=== PATIENT | male | born 1960 | race Caucasian/White ===

== ENCOUNTER 2016-12-09 08:37 | Inpatient (IN) | payer MEDICAID ==
[~2016-12-09] VITALS: Ht 177.8 cm; Wt 83.9 kg
[2016-12-09] VITALS (13 sets, daily range): BP systolic 104–150; BP diastolic 32–102
--- NOTE | 2016-12-09 08:37 | NUR ---
Patient ambulated to ER bed 1B with steady gait. Patient is seen chewing. Patient says he is currently eating a chocolate milky bar while at the same time complaining of shortness of breath and palpitations for a week. Patient denies nausea or vomiting, skin is warm and dry.
[2016-12-09] MEDS ORDERED: DILTIAZEM HCL 25 MG IV IV ONE (08:45)
--- NOTE | 2016-12-09 08:51 | NUR ---
PT REPORTS HE IS NOT TAKING ANY MEDICATIONS .
[2016-12-09] MEDS ORDERED: DILTIAZEM HCL 25 MG IV ONE (08:54)
[2016-12-09] MEDS ORDERED: METOPROLOL TARTRATE 5 MG/5 ML VIAL IVP ONE ×4 (09:14→10:26)
--- NOTE | 2016-12-09 09:17 | NUR ---
Patient is resting comfortably in bed with eyes closed. Patient denies pains, pending results and disposition.
[2016-12-09 09:27] LABS: CALCIUM 8.5 mg/dL (8.5-10.1); CREATININE 1.2 mg/dL (0.6-1.3); POTASSIUM 4.2 mmol/L (3.5-5.1)
[2016-12-09 09:34] LABS: BASOPHILS # (AUTO) 0.1 K/uL (0.0-0.2); BASOPHILS % (AUTO) 0.7 % (0.0-2.0); EOSINOPHILS # (AUTO) 0.3 K/uL (0.0-0.7); EOSINOPHILS % (AUTO) 3.9 % (0.0-7.0); HEMOGLOBIN 12.6 g/dL (14.0-18.0); LYMPHOCYTES # (AUTO) 1.4 K/uL (0.8-4.8); LYMPHOCYTES % (AUTO) 17.8 % (20.5-51.5); MEAN CORPUSCULAR HEMOGLOBIN 28.5 uug (27.0-31.0); MEAN CORPUSCULAR HGB CONC 33 g/dL (32.0-37.0); MEAN CORPUSCULAR VOLUME 86.1 fL (82.0-92.0); MONOCYTES # (AUTO) 0.5 K/uL (0.1-1.30); MONOCYTES % (AUTO) 6.4 % (0.0-11.0); NEUTROPHILS # (AUTO) 5.7 K/uL (1.8-8.9); NEUTROPHILS % (AUTO) 71.2 % (38.5-71.5); PLATELET COUNT (AUTO) 199 K/uL (150-450); RED BLOOD CELL COUNT(AUTO) 4.42 MIL/uL (4.70-6.10); RED CELL DISTRIBUTION WIDTH 15.1 % (11.5-14.5)
[2016-12-09 09:39] LABS: ALBUMIN 3.2 g/dL (3.4-5.0); BILIRUBIN,DIRECT 0.1 mg/dL (0.0-0.2); BILIRUBIN,TOTAL 0.4 mg/dL (0.2-1.0); TOTAL PROTEIN, SERUM 6.4 g/dL (6.4-8.2)
--- NOTE | 2016-12-09 10:47 | NUR ---
still for urine sample, endorse to RN [place], current heart rate is still 130's/min, Dr Lundy notified, no new orders given
--- NOTE | 2016-12-09 10:55 | NUR ---
On arrival to telemetry floor, charge manager Mckenzie communicated to Dr Britton. Patient's care is now CCU. ER registration /admission staff [place] notified.
--- NOTE | 2016-12-09 11:18 | NUR ---
Bedside report received from RENETTA Arreguin. patient placed on cardiac tech and heart rate of afib-110's 130's sbp within desire limits. saturation of 95% on room air. over all skin clean and intact. patient with no complains of been shortness of breath at this time. Patient resting afebrile.
--- NOTE | 2016-12-09 11:18 | NUR ---
Patient is now in CCU-2. Bedside hands off report given to RENETTA Zamora accordingly.
--- NOTE | 2016-12-09 11:20 | NUR ---
Dr. Greenfield called to be notified of patient's current condition and of admission to the unit. Awaiting orders.
[2016-12-09 13:37] LABS: *AMPHETAMINE, URINE NEGATIVE (NEGATIVE); *BARBITURATE, URINE NEGATIVE (NEGATIVE); *CANNABINOID, URINE POSITIVE (NEGATIVE); *COCCAINE, URINE POSITIVE (NEGATIVE); *OPIATE, URINE NEGATIVE (NEGATIVE); *PHENCYCLIDINE SCREEN,URINE NEGATIVE (NEGATIVE)
[2016-12-09] MEDS ORDERED: ACETAMINOPHEN 650 MG SUPP.RECT RC PRN (14:30)
[2016-12-09] MEDS ORDERED: NORMAL SALINE FLUSH 10 ML DISP.SYRIN IV PRN (14:30)
[2016-12-09] MEDS ORDERED: MAGNESIUM HYDROXIDE 30 ML LIQUID UDC PO PRN (14:30)
[2016-12-09] MEDS ORDERED: AMIODARONE HCL IV 900 MG in IV DEXTROSE 5% 482 ML IV PRN (14:30)
[2016-12-09] MEDS ORDERED: ZOLPIDEM 5 MG TABLET PO PRN (14:30)
[2016-12-09] MEDS ORDERED: AMIODARONE HCL IV 150 MG in IV DEXTROSE 5% 100 ML IV ONE (14:30)
--- NOTE | 2016-12-09 14:45 | NUR ---
Dr. Greenfield in the unit to see patient; full report given orders received see, order history.
[2016-12-09] MEDS: LORAZEPAM 2 MG/1 ML VIAL IV PRN (16:43)
--- NOTE | 2016-12-09 19:30 | NUR ---
Report received. Patient sleeping at intervals, mildly SOB and with grunting respirations occasionally. O2 @ 2L NC; sat above 94%. HOB elevated to optimum; patient refused high fowlers despite explanation that it will ease his breathing. Assessment completed. Stands at side of bed to urinate; gait steady. Addendum: 12/09/16 at 2131 by ERASMO AGUIAR RN Amended: Links added.
--- NOTE | 2016-12-09 20:30 | NUR ---
2nd IV access inserted to RFA with angio #22. Patient cooperative. Treatment plans discussed with patient. Addendum: 12/09/16 at 2110 by ERASMO AGUIAR RN Amended: Links added.
--- NOTE | 2016-12-09 20:40 | NUR ---
Medicated with Morphine IV for generalized pain. Addendum: 12/09/16 at 2114 by ERASMO AGUIAR RN Amended: Links added.
[2016-12-09] MEDS: MORPHINE SULFATE 2 MG/1 ML DISP.SYRIN IV PRN (20:41)
[2016-12-09] MEDS: DOCUSATE SODIUM 100 MG CAPSULE PO SCH (20:44)
[2016-12-09] MEDS ORDERED: ENOXAPARIN SODIUM 100 MG/ML DISP.SYRIN SQ SCH (21:00)
[2016-12-09] MEDS ORDERED: FUROSEMIDE 20 MG/2 ML VIAL IV SCH (21:00)
--- NOTE | 2016-12-09 22:00 | NUR ---
Seen and evaluated by Dr. Henley. Patient voiding per urinal 100-160 ml of clear yellow urine. Addendum: 12/09/16 at 2341 by ERASMO AGUIAR RN Amended: Links added.
[2016-12-09] MEDS: NORMAL SALINE FLUSH 10 ML DISP.SYRIN IV SCH (22:04)
--- NOTE | 2016-12-09 22:15 | NUR ---
Amiodarone toney martinez as ordered by Dr. Henley. Sleeping at intervals. Addendum: 12/09/16 at 2253 by ERASMO AGUIAR RN Amended: Links added.
[2016-12-09] MEDS: DILTIAZEM HCL 60 MG TABLET PO SCH (23:44)
[2016-12-09] MEDS ORDERED: DILTIAZEM HCL 60 MG TABLET ONE (23:52)
[2016-12-10] VITALS (8 sets, daily range): BP systolic 118–151; BP diastolic 65–100
[2016-12-10] MEDS: MORPHINE SULFATE 2 MG/1 ML DISP.SYRIN IV PRN (01:59)
--- NOTE | 2016-12-10 02:00 | NUR ---
Awake; c/o generalized pain. Medicated with Morphine IV. BP stable. Addendum: 12/10/16 at 0229 by ERASMO AGUIAR RN Amended: Links added.
--- NOTE | 2016-12-10 04:00 | NUR ---
In and out of Atrial flutter with variable blocks rate 110's and SVT rate 120's. Addendum: 12/10/16 at 0424 by ERASMO AGUIAR RN Amended: Links added.
[2016-12-10] MEDS: NORMAL SALINE FLUSH 10 ML DISP.SYRIN IV SCH ×3 (06:11→21:26)
[2016-12-10] MEDS: PANTOPRAZOLE SODIUM 40 MG TABLET.DR PO SCH (06:13)
[2016-12-10] MEDS: DILTIAZEM HCL 60 MG TABLET PO SCH ×2 (06:13→13:15)
[2016-12-10] MEDS ORDERED: DILTIAZEM HCL 60 MG TABLET ONE (06:21)
--- NOTE | 2016-12-10 06:30 | NUR ---
Monitor remains: A flutter rate 110'-120'. Had 2 doses of Cardizem 60 mg po. ( 0000 and 0600). BP stable.
[2016-12-10 06:57] LABS: BASOPHILS # (AUTO) 0.2 K/uL (0.0-0.2); BASOPHILS % (AUTO) 1.8 % (0.0-2.0); EOSINOPHILS # (AUTO) 0.3 K/uL (0.0-0.7); EOSINOPHILS % (AUTO) 3.5 % (0.0-7.0); HEMATOCRIT 38.6 % (40.0-50.0); HEMOGLOBIN 12.7 g/dL (14.0-18.0); LYMPHOCYTES # (AUTO) 2.1 K/uL (0.8-4.8); LYMPHOCYTES % (AUTO) 21.6 % (20.5-51.5); MEAN CORPUSCULAR HEMOGLOBIN 28.3 uug (27.0-31.0); MEAN CORPUSCULAR HGB CONC 33 g/dL (32.0-37.0); MEAN CORPUSCULAR VOLUME 85.7 fL (82.0-92.0); MONOCYTES # (AUTO) 0.6 K/uL (0.1-1.30); MONOCYTES % (AUTO) 6.5 % (0.0-11.0); NEUTROPHILS # (AUTO) 6.4 K/uL (1.8-8.9); NEUTROPHILS % (AUTO) 66.6 % (38.5-71.5); PLATELET COUNT (AUTO) 202 K/uL (150-450); RED CELL DISTRIBUTION WIDTH 15.1 % (11.5-14.5); WHITE BLOOD COUNT (AUTO) 9.6 K/uL (4.0-11.2)
[2016-12-10 07:25] LABS: ALBUMIN 3.1 g/dL (3.4-5.0); BILIRUBIN,TOTAL 0.8 mg/dL (0.2-1.0); CALCIUM 8.5 mg/dL (8.5-10.1); CREATININE 1.1 mg/dL (0.6-1.3); MAGNESIUM 2.1 mg/dL (1.8-2.4); PHOSPHOROUS 3.5 mg/dL (2.5-4.9); TOTAL PROTEIN, SERUM 6.3 g/dL (6.4-8.2)
--- NOTE | 2016-12-10 07:30 | NUR ---
RECIEVED PT LYING IN BED, AWAKE,ALERT AND ORIENTEDX3. DENIES ANY PAIN AT THIS TIME. VERY PLEASANT AND IN GOOD SPIRIT.
[2016-12-10] MEDS: FUROSEMIDE 20 MG/2 ML VIAL IV SCH (08:43)
[2016-12-10 10:54] LABS: THYROID STIMULATING HORMONE 2.249 mIU/mL (0.358-3.740)
[2016-12-10] MEDS: LORAZEPAM 2 MG/1 ML VIAL IV PRN (14:34)
--- NOTE | 2016-12-10 16:30 | NUR ---
PT IS A LITTLE ANXIOUS. REQUESTED FOR AN ATIVAN 1MG ORDERED AND PT WENT TO SLEEP.
[2016-12-10] MEDS ORDERED: RIVAROXABAN 10 MG TABLET PO SCH (18:00)
--- NOTE | 2016-12-10 18:00 | NUR ---
SEEN AND EXAMINED BY DR BURROUGHS WITH NEW ORDERS. PT REMAINS STABLE ALL DAY.
[2016-12-10] MEDS ORDERED: DIGOXIN 250 MCG TABLET PO ONE (18:15)
[2016-12-10] MEDS: DILTIAZEM HCL CD 180 MG CAP.SR.24H PO SCH (18:19)
--- NOTE | 2016-12-10 19:00 | NUR ---
PT ATE [employer]. TRANSFERRED TO [facility] RM 215 VIA W/C. REPORT GIVEN TO XOCHITL JACK[place].
--- NOTE | 2016-12-10 19:15 | NUR ---
received patient from ccu to room 215,tele-Td status,patient alert,oriented x4, not in acute distress,bp 118/83,o2 sat 96% on room air.A-Flutter rate 100's,patient denies any pain/discomfort.
[2016-12-10] MEDS: DOCUSATE SODIUM 100 MG CAPSULE PO SCH (21:26)
[2016-12-11] MEDS ORDERED: DIGOXIN 250 MCG TABLET PO ONE
[2016-12-11 00:14] VITALS: BP 122/75
--- NOTE | 2016-12-11 01:30 | NUR ---
PATIENT HAS BEEN SLEEPING AFTER AMBIEN 5 MG PO GIVEN PER REQUESTED.
[2016-12-11 04:07] VITALS: BP 113/56
[2016-12-11] MEDS: MORPHINE SULFATE 2 MG/1 ML DISP.SYRIN IV PRN (04:42)
--- NOTE | 2016-12-11 04:54 | NUR ---
MORPHINE 2 MG IV ADMIN FOR GENERALIZED PAIN,PATIENT REMAINS IN A FIB, A FLUTTER, RATE 80-100'S,BP STABLE.
[2016-12-11] MEDS: NORMAL SALINE FLUSH 10 ML DISP.SYRIN IV SCH ×2 (06:03→14:00)
[2016-12-11] MEDS: PANTOPRAZOLE SODIUM 40 MG TABLET.DR PO SCH (06:52)
--- NOTE | 2016-12-11 07:54 | NUR ---
PATIENT RECEIVED IN ROOM RESTING WITH EYES CLOSED IN NO ACUTE DISTRESS. CONTROLLED A. FLUTTER ON CONSTRUCTION COORDINATOR. RESPIRATIONS EVEN AND UNLABORED. FALL PRECAUTIONS IN PLACE.
[2016-12-11 08:00] VITALS: BP 142/84
[2016-12-11] MEDS: FUROSEMIDE 20 MG/2 ML VIAL IV SCH (08:35)
[2016-12-11] MEDS: DILTIAZEM HCL CD 180 MG CAP.SR.24H PO SCH (08:36)
[2016-12-11] MEDS ORDERED: DIGOXIN 250 MCG TABLET PO SCH (09:00)
[2016-12-11 11:48] VITALS: BP 125/73
[2016-12-11] MEDS: LORAZEPAM 2 MG/1 ML VIAL IV PRN (13:44)
[2016-12-11 15:46] VITALS: BP 119/67
[2016-12-11] MEDS ORDERED: RIVA10TA PO (16:51)
[2016-12-11] MEDS ORDERED: FURO-151 PO (16:51)
[2016-12-11] MEDS ORDERED: ATOR20TA PO (16:51)
[2016-12-11] MEDS ORDERED: ACET650S24 RC (16:51)
[2016-12-11] MEDS ORDERED: DILT180C66 PO (16:51)
[2016-12-11] MEDS ORDERED: DIGO250T16 PO (16:51)
--- NOTE | 2016-12-11 17:26 | NUR ---
DISCHARGING PATIENT HOME IN A STABLE CONDITION. VSS. DENIED CHEST PAIN. DISCHARGE INSTRUCTIONS PROVIDED. LIST OF BELONGINGS SIGNED AND ALL WAS TAKEN. IV SITES REMOVED, PRESSURE APPLIED AND HEMOSTASIS ACHIEVED. PATIENT LEAVING VIA ELVER, ELVER TOKEN PROVIDED.
[2016-12-11] MEDS ORDERED: ATORVASTATIN 20 MG TABLET PO SCH (21:00)
== END 2016-12-11 17:40 | disposition home or self-care (01) | DRG 201 ==
LOC: ER 08:37 → EDBD 08:37 → TELE 10:49 → CCU 11:25 → TELE-TD 12-10 19:35 → MED 12-11 17:04
PROVIDERS: ADMIT Internal Medicine; ATTEND Internal Medicine
DX: I48.91 Unspecified atrial fibrillation (principal); I50.23 Acute on chronic systolic (congestive) heart failure; I42.9 Cardiomyopathy, unspecified; J44.1 Chronic obstructive pulmonary disease with (acute) exacerbation; I48.4 Atypical atrial flutter; I11.0 Hypertensive heart disease with heart failure; F14.10 Cocaine abuse, uncomplicated; F17.200 Nicotine dependence, unspecified, uncomplicated; E66.9 Obesity, unspecified; D64.9 Anemia, unspecified; F17.210 Nicotine dependence, cigarettes, uncomplicated; I48.0 Paroxysmal atrial fibrillation; Z91.14 Patient's other noncompliance with medication regimen; Z68.26 Body mass index [BMI] 26.0-26.9, adult; R73.9 Hyperglycemia, unspecified; I34.0 Nonrheumatic mitral (valve) insufficiency
CPT/HCPCS: 36415; 70030-TC; 71010; 80307; 80349; 80353; 83550; 83735; 84100; 84443; 85025; 85730; 93005; 93307; A4663; J0282; J1650; J1940; J2060; J2270; J3490; J7060

== ENCOUNTER 2016-12-16 23:03 | Inpatient (IN) | payer MEDICAID ==
[~2016-12-16] VITALS: Ht 177.8 cm; Wt 88.6 kg
[~2016-12-16 23:03] MED LIST: ACET650S24 RC; ATOR20TA PO; DIGO250T16 PO; DILT180C66 PO; FURO-151 PO; RIVA10TA PO
[2016-12-16] MEDS ORDERED: DILTIAZEM HCL IV 125 MG in IV DEXTROSE 5% 100 ML IV PRN (23:45)
[2016-12-16] MEDS ORDERED: DILTIAZEM HCL 25 MG IV IV ONE (23:45)
[2016-12-16] MEDS ORDERED: ASPIRIN 81 MG TAB.CHEW PO ONE (23:45)
[2016-12-17 00:19] LABS: EOSINOPHILS # (AUTO) 0.4 K/uL (0.0-0.7); EOSINOPHILS % (AUTO) 3.9 % (0.0-7.0); HEMOGLOBIN 12.8 g/dL (14.0-18.0); MONOCYTES # (AUTO) 0.6 K/uL (0.1-1.30); RED CELL DISTRIBUTION WIDTH 14.4 % (11.5-14.5)
[2016-12-17 00:25] LABS: BASOPHILS # (AUTO) 0.1 K/uL (0.0-0.2); BASOPHILS % (AUTO) 1.4 % (0.0-2.0); HEMATOCRIT 37.3 % (40.0-50.0); LYMPHOCYTES # (AUTO) 1.8 K/uL (0.8-4.8); LYMPHOCYTES % (AUTO) 19.3 % (20.5-51.5); MEAN CORPUSCULAR HEMOGLOBIN 28.8 uug (27.0-31.0); MEAN CORPUSCULAR HGB CONC 34 g/dL (32.0-37.0); MEAN CORPUSCULAR VOLUME 83.6 fL (82.0-92.0); MONOCYTES % (AUTO) 6.8 % (0.0-11.0); NEUTROPHILS # (AUTO) 6.5 K/uL (1.8-8.9); NEUTROPHILS % (AUTO) 68.6 % (38.5-71.5); PLATELET COUNT (AUTO) 227 K/uL (150-450); RED BLOOD CELL COUNT(AUTO) 4.46 MIL/uL (4.70-6.10); WHITE BLOOD COUNT (AUTO) 9.4 K/uL (4.0-11.2)
[2016-12-17] MEDS ORDERED: DILTIAZEM HCL 25 MG IV ONE (00:33)
[2016-12-17] MEDS ORDERED: ASPIRIN 81 MG TAB.CHEW ONE (00:33)
[2016-12-17] MEDS ORDERED: DILTIAZEM HCL 50 MG IV ONE (00:34)
[2016-12-17 00:39] LABS: ALBUMIN 3.5 g/dL (3.4-5.0); BILIRUBIN,DIRECT 0.1 mg/dL (0.0-0.2); BILIRUBIN,TOTAL 0.7 mg/dL (0.2-1.0); TOTAL PROTEIN, SERUM 7.1 g/dL (6.4-8.2)
[2016-12-17] MEDS ORDERED: DIGOXIN 500 MCG/2 ML AMP IV ONE (01:00)
[2016-12-17] MEDS ORDERED: ENOXAPARIN SODIUM 80 MG/0.8 ML DISP.SYRIN SQ ONE ×2 (01:00→01:30)
[2016-12-17 01:05] LABS: *OCCULT BLOOD STOOL NEGATIVE (NEGATIVE)
[2016-12-17] MEDS ORDERED: DIGOXIN 500 MCG/2 ML AMP ONE (01:30)
[2016-12-17 01:50] LABS: *BILIRUBIN,URIN NEGATIVE (NEGATIVE); *BLOOD, URINE NEGATIVE (NEGATIVE); *CLARITY,URINE CLEAR (CLEAR); *COLOR,URINE YELLOW (YELLOW); *KETONES,URINE NEGATIVE (NEGATIVE); *PROTEIN,URINE 1+ (NEGATIVE); LEUKOCYTE ESTERASE ,URINE NEGATIVE (NEGATIVE); NITRITE, URINE NEGATIVE (NEGATIVE); PH,URINE 7.5 (5.0-8.0); UGLUCOSE NEGATIVE (NEGATIVE)
[2016-12-17 01:56] LABS: BACTERIA,URINE FEW /HPF (NONE SEEN); RBC,URINE NONE SEEN /HPF (0-3); SQUAMOUS EPITHELIAL CELL,UR FEW /HPF (NONE SEEN); WBC,URINE 0-3 /HPF (0-3)
[2016-12-17 02:00] LABS: *AMPHETAMINE, URINE NEGATIVE (NEGATIVE); *BARBITURATE, URINE NEGATIVE (NEGATIVE); *CANNABINOID, URINE POSITIVE (NEGATIVE); *COCCAINE, URINE POSITIVE (NEGATIVE); *OPIATE, URINE NEGATIVE (NEGATIVE); *PHENCYCLIDINE SCREEN,URINE NEGATIVE (NEGATIVE)
[2016-12-17] MEDS ORDERED: MAGNESIUM HYDROXIDE 30 ML LIQUID UDC PO PRN ×2 (02:00→21:00)
[2016-12-17] MEDS ORDERED: Z GUARD REMEDY PASTE 57 GM TUBE TOP PRN (02:00)
[2016-12-17] MEDS ORDERED: ACETAMINOPHEN 650 MG SUPP.RECT RC PRN (02:00)
[2016-12-17] MEDS ORDERED: HYDROCODONE/APAP 5-325MG TABLET PO PRN ×2 (02:00→12:00)
[2016-12-17] MEDS ORDERED: ONDANSETRON 4 MG/2 ML VIAL IV PRN (02:00)
[2016-12-17] MEDS ORDERED: ACETAMINOPHEN 325 MG TABLET PO PRN (02:00)
[2016-12-17 02:45] VITALS: BP 137/99
[2016-12-17] MEDS ORDERED: HYDROCODONE/APAP 5-325MG TABLET ONE (03:19)
[2016-12-17 07:23] VITALS: BP 150/87
[2016-12-17 07:25] VITALS: BP 150/87
[2016-12-17] MEDS: PANTOPRAZOLE SODIUM 40 MG TABLET.DR PO SCH (08:02)
[2016-12-17] MEDS ORDERED: FUROSEMIDE 40 MG TABLET PO SCH (09:00)
[2016-12-17] MEDS: DIGOXIN 250 MCG TABLET PO SCH (09:18)
[2016-12-17 11:20] VITALS: BP 156/82
[2016-12-17] MEDS: DILTIAZEM HCL CD 180 MG CAP.SR.24H PO SCH (13:00)
[2016-12-17 15:29] VITALS: BP 151/91
[2016-12-17] MEDS: RIVAROXABAN 10 MG TABLET PO SCH (17:12)
[2016-12-17 19:00] VITALS: BP 135/90
[2016-12-17] MEDS: LORAZEPAM 2 MG/1 ML VIAL IV PRN (20:27)
[2016-12-17] MEDS ORDERED: ATORVASTATIN 20 MG TABLET PO SCH (21:00)
[2016-12-18] VITALS: BP 130/75
[2016-12-18] MEDS: LORAZEPAM 2 MG/1 ML VIAL IV PRN ×3 (03:11→23:29)
[2016-12-18 04:00] VITALS: BP 144/111
[2016-12-18 05:45] VITALS: BP 138/79
[2016-12-18] MEDS: PANTOPRAZOLE SODIUM 40 MG TABLET.DR PO SCH (06:35)
[2016-12-18] MEDS: FUROSEMIDE 20 MG TABLET PO SCH (08:13)
[2016-12-18] MEDS: DIGOXIN 250 MCG TABLET PO SCH (08:14)
[2016-12-18] MEDS: DILTIAZEM HCL CD 180 MG CAP.SR.24H PO SCH (08:14)
[2016-12-18 11:45] VITALS: BP 136/105
[2016-12-18 15:17] LABS: ALBUMIN 3.2 g/dL (3.4-5.0); BILIRUBIN,TOTAL 0.5 mg/dL (0.2-1.0); CREATININE 1.2 mg/dL (0.6-1.3); PHOSPHOROUS 3.1 mg/dL (2.5-4.9); TOTAL PROTEIN, SERUM 6.7 g/dL (6.4-8.2)
[2016-12-18 15:50] VITALS: BP 132/90
[2016-12-18 16:52] LABS: EOSINOPHILS # (AUTO) 0.1 K/uL (0.0-0.7); LYMPHOCYTES # (AUTO) 1.2 K/uL (0.8-4.8); MONOCYTES # (AUTO) 0.4 K/uL (0.1-1.30)
[2016-12-18 16:53] LABS: HEMATOCRIT 38.7 % (39-51); HEMOGLOBIN 13.1 G/DL (13.5-17.5); MEAN CORPUSCULAR HEMOGLOBIN 29.7 UUG (26.0-33.0); MEAN CORPUSCULAR HGB CONC 34 g/dL (31.0-36.0); MEAN CORPUSCULAR VOLUME 87.3 FL (80-96); PLATELET COUNT (AUTO) 229 K/UL (150-450); RED BLOOD CELL COUNT(AUTO) 4.43 MIL/UL (4.5-6.0); RED CELL DISTRIBUTION WIDTH 12.9 % (11.5-15.0)
[2016-12-18 16:54] LABS: BASOPHILS % (AUTO) 0.1 % (0.0-2.0); EOSINOPHILS % (AUTO) 1.4 % (0.0-7.0); LYMPHOCYTES % (AUTO) 15.4 % (20.5-51.5); MONOCYTES % (AUTO) 5.1 % (0.0-11.0); WHITE BLOOD COUNT (AUTO) 7.6 K/UL (4.3-11.0)
[2016-12-18] MEDS: RIVAROXABAN 10 MG TABLET PO SCH (17:19)
[2016-12-18 19:00] VITALS: BP 140/89
[2016-12-19 04:00] VITALS: BP 135/80
[2016-12-19] MEDS: PANTOPRAZOLE SODIUM 40 MG TABLET.DR PO SCH (06:15)
[2016-12-19] MEDS: DIGOXIN 250 MCG TABLET PO SCH (08:03)
[2016-12-19] MEDS: FUROSEMIDE 20 MG TABLET PO SCH (08:04)
[2016-12-19] MEDS: DILTIAZEM HCL CD 180 MG CAP.SR.24H PO SCH (08:04)
[2016-12-19] MEDS ORDERED: Furosemide PO (11:30)
[2016-12-19 12:07] VITALS: BP 140/90
== END 2016-12-19 13:30 | disposition home or self-care (01) | DRG 194 ==
LOC: ER 23:24 → TELE-TD 12-17 02:12 → TELE 12-17 09:20 → MED 12-18 13:12
PROVIDERS: ADMIT Internal Medicine; ATTEND Internal Medicine
DX: I50.23 Acute on chronic systolic (congestive) heart failure (principal); N17.0 Acute kidney failure with tubular necrosis; I42.9 Cardiomyopathy, unspecified; I48.92 Unspecified atrial flutter; Z91.14 Patient's other noncompliance with medication regimen; F14.10 Cocaine abuse, uncomplicated; D64.9 Anemia, unspecified; F17.210 Nicotine dependence, cigarettes, uncomplicated; E66.9 Obesity, unspecified; I10 Essential (primary) hypertension; F41.9 Anxiety disorder, unspecified; I48.91 Unspecified atrial fibrillation; J44.9 Chronic obstructive pulmonary disease, unspecified; Z68.28 Body mass index [BMI] 28.0-28.9, adult; Z91.19 Patient's noncompliance with other medical treatment and regimen; Z79.899 Other long term (current) drug therapy
CPT/HCPCS: 36415; 70030-TC; 71010; 80307; 83735; 84100; 85025; 85730; 93005; A4663; J1160; J1650; J2060; J3490; J7040; J7060

== ENCOUNTER 2017-08-23 23:35 | Emergency (ER) | payer MEDICAID ==
[~2017-08-23] VITALS: Ht 175.3 cm; Wt 86.2 kg
[~2017-08-23 23:35] MED LIST changes: -DILT180C66 PO; -FURO-151 PO; +Furosemide PO
[2017-08-24] MEDS ORDERED: ASPIRIN 81 MG TAB.CHEW PO ONE
--- NOTE | 2017-08-24 00:08 | NUR ---
1 NITRO 0.4MG SL GIVEN, 1 NITRO OINTMENT PACKET GIVEN. WILL MONITOR.
--- NOTE | 2017-08-24 00:13 | NUR ---
PATIENT DENIES CHEST PAIN AT THIS TIME, FELT RELIEF AFTER MEDICATION.
[2017-08-24 00:20] LABS: BASOPHILS # (AUTO) 0.1 K/uL (0.0-8.0); BASOPHILS % (AUTO) 1.4 % (0.0-2.0); EOSINOPHILS # (AUTO) 0.4 K/uL (0.0-0.7); EOSINOPHILS % (AUTO) 5.5 % (0.0-7.0); HEMATOCRIT 42.7 % (40-50); LYMPHOCYTES % (AUTO) 25.2 % (20.5-51.5); MEAN CORPUSCULAR HEMOGLOBIN 29.4 UUG (27.0-31.0); MEAN CORPUSCULAR HGB CONC 33 g/dL (32.0-37.0); MEAN CORPUSCULAR VOLUME 89.8 FL (82.0-92.0); MONOCYTES # (AUTO) 0.4 K/UL (0.1-1.30); MONOCYTES % (AUTO) 5.6 % (0.0-11.0); NEUTROPHILS # (AUTO) 4.9 K/UL (1.8-8.9); NEUTROPHILS % (AUTO) 62.3 % (38.5-71.5); PLATELET COUNT (AUTO) 239 K/UL (150-450); RED BLOOD CELL COUNT(AUTO) 4.75 MIL/UL (4.7-6.1); WHITE BLOOD COUNT (AUTO) 7.8 K/UL (4.0-11.2)
[2017-08-24] MEDS ORDERED: ASPIRIN 81 MG TAB.CHEW ONE (00:22)
[2017-08-24] MEDS ORDERED: NITROGLYCERIN OINT 1 GM PACKET TP ONE ×2 (00:22)
[2017-08-24] MEDS ORDERED: NITROGLYCERIN 0.4 MG/TAB BOTTLE SL ONE ×2 (00:22)
[2017-08-24 00:32] LABS: CREATININE 1.4 mg/dL (0.6-1.3); POTASSIUM 3.6 mmol/L (3.5-5.1)
[2017-08-24 00:44] LABS: BILIRUBIN,DIRECT 0.2 mg/dL (0.0-0.2); BILIRUBIN,TOTAL 0.6 mg/dL (0.2-1.0); TOTAL PROTEIN, SERUM 6.9 g/dL (6.4-8.2)
[2017-08-24] MEDS ORDERED: IV NORMAL SALINE 1000 ML BAG IV ONE (01:15)
[2017-08-24] MEDS ORDERED: IV NORMAL SALINE 250 ML IV ONE (01:35)
[2017-08-24] MEDS ORDERED: IOHEXOL 350 100 ML INFUS..BTL ONE (01:35)
[2017-08-24 04:09] VITALS: BP 138/72
--- NOTE | 2017-08-24 04:09 | NUR ---
Patient discharged to home in stable conditon. Written and verbal after care instructions given. Patient verbalizes understanding of instructions. PATIENT LEFT WITH STABLE GAIT.
== END 2017-08-24 04:10 | disposition home or self-care (01) ==
LOC: ER 23:37
DX: R07.9 Chest pain, unspecified (principal); R06.00 Dyspnea, unspecified; F14.10 Cocaine abuse, uncomplicated; E78.00 Pure hypercholesterolemia, unspecified; Z91.14 Patient's other noncompliance with medication regimen; I48.91 Unspecified atrial fibrillation; F17.200 Nicotine dependence, unspecified, uncomplicated
CPT/HCPCS: 36415; 71010; 71275; 80048; 80076; 83880; 84484 ×2; 85025; 85379; 85730; 93005; 96360; 99285; 99406; A4663; J7050; Q9967; 70030-TC

== ENCOUNTER 2017-09-05 04:27 | Inpatient (IN) | payer MEDICAID ==
[~2017-09-05] VITALS: Ht 177.8 cm; Wt 86.2 kg
[2017-09-05] MEDS ORDERED: NITROGLYCERIN 0.4 MG/TAB BOTTLE SL ONE (05:00)
[2017-09-05] MEDS ORDERED: ASPIRIN 81 MG TAB.CHEW PO ONE (05:00)
[2017-09-05] MEDS ORDERED: NITROGLYCERIN OINT 1 GM PACKET TP ONE ×2 (05:00→05:19)
[2017-09-05] MEDS ORDERED: LORAZEPAM 2 MG/1 ML VIAL IV ONE (05:00)
[2017-09-05 05:09] LABS: BASOPHILS % (AUTO) 0.3 % (0.0-2.0); EOSINOPHILS # (AUTO) 0.1 K/uL (0.0-0.7); EOSINOPHILS % (AUTO) 0.6 % (0.0-7.0); HEMATOCRIT 41.6 % (36.7-47.1); HEMOGLOBIN 14.3 g/dL (12.5-16.3); LYMPHOCYTES # (AUTO) 1.2 K/uL (20.0-40.0); LYMPHOCYTES % (AUTO) 11.7 % (20.5-51.5); MEAN CORPUSCULAR HEMOGLOBIN 31.3 uug (23.8-33.4); MEAN CORPUSCULAR HGB CONC 34 g/dL (32.5-36.3); MONOCYTES # (AUTO) 0.7 K/uL (2.0-10.0); MONOCYTES % (AUTO) 6.6 % (0.0-11.0); NEUTROPHILS # (AUTO) 8.3 K/uL (1.8-8.9); NEUTROPHILS % (AUTO) 80.8 % (38.5-71.5); PLATELET COUNT (AUTO) 223 K/uL (152-348); RED BLOOD CELL COUNT(AUTO) 4.57 MIL/uL (4.06-5.63); WHITE BLOOD COUNT (AUTO) 10.3 K/uL (3.6-10.2)
--- NOTE | 2017-09-05 05:13 | NUR ---
Pt ambulated to room with steady gait, changed into gown and placed on monitor. Pt c/o intermittent midsternal chest pressure and shortness of breath. Pt describes it as " I cant catch my breath" Pt NSR on monitor. Resp even and unlabored. Pt speaking full sentences. Pt O2 sats > 95% on RA. Pt seen by Dr. Green. IV established, labs drawn and sent. Pt medicated for discomfort, will monitor for effects of medication. EKG obtained and given to Dr. Green. Pt resting in position of comfort for self
[2017-09-05] MEDS ORDERED: ASPIRIN 81 MG TAB.CHEW ONE ×2 (05:19→05:23)
[2017-09-05] MEDS ORDERED: LORAZEPAM 2 MG/1 ML VIAL ONE (05:20)
[2017-09-05 05:36] LABS: BILIRUBIN,DIRECT 0.2 mg/dL (0.0-0.2); BILIRUBIN,TOTAL 0.6 mg/dL (0.2-1.0); CREATININE 1.7 mg/dL (0.6-1.3); POTASSIUM 3.7 mmol/L (3.5-5.1); TOTAL PROTEIN, SERUM 6.5 g/dL (6.4-8.2)
--- NOTE | 2017-09-05 05:40 | NUR ---
Pt resting in position of comfort for self, resp even and unlabored. No obvious signs of distress. Pt has no complaints at this time.
--- NOTE | 2017-09-05 06:07 | NUR ---
Report given to RENETTA Carpio. Preparing to transfer pt to the floor.
--- NOTE | 2017-09-05 06:19 | NUR ---
Nitro SL not administered, pt chest pain free
[2017-09-05] MEDS ORDERED: ONDANSETRON 4 MG/2 ML VIAL IV PRN (06:45)
[2017-09-05] MEDS ORDERED: ZOLPIDEM 5 MG TABLET PO PRN (06:45)
[2017-09-05] MEDS ORDERED: MAGNESIUM HYDROXIDE 30 ML LIQUID UDC PO PRN (06:45)
[2017-09-05] MEDS ORDERED: ALBUTEROL SULFATE 1.25 MG/3 ML NEBU NEB PRN (06:45)
[2017-09-05] MEDS ORDERED: LORAZEPAM 2 MG/1 ML VIAL IV PRN (06:45)
[2017-09-05] MEDS ORDERED: ACETAMINOPHEN 325 MG TABLET PO PRN (06:45)
--- NOTE | 2017-09-05 07:00 | NUR ---
received from night club manager RN, pt came from home with c/o midsternal pain- states on and off, denies any at this time, on tele SR- denies of shortness of breath, routine admission care rendered, safety measures maintained, call light within reach
[2017-09-05 07:31] VITALS: BP 117/64
[2017-09-05] MEDS: ASPIRIN 81 MG TAB.CHEW PO SCH (09:12)
[2017-09-05] MEDS: POTASSIUM CHLORIDE 20 MEQ in IV 1/2NS 1000 ML 1,000 ML IV PRN (09:13)
[2017-09-05 11:28] VITALS: BP 116/65
[2017-09-05 11:52] LABS: *AMPHETAMINE, URINE NEGATIVE (NEGATIVE); *BARBITURATE, URINE NEGATIVE (NEGATIVE); *CANNABINOID, URINE POSITIVE (NEGATIVE); *COCCAINE, URINE POSITIVE (NEGATIVE); *OPIATE, URINE NEGATIVE (NEGATIVE); *PHENCYCLIDINE SCREEN,URINE NEGATIVE (NEGATIVE)
--- NOTE | 2017-09-05 12:00 | NUR ---
urine sent to lab
--- NOTE | 2017-09-05 12:05 | NUR ---
seen by Dr Gamboa with orders
[2017-09-05 13:29] LABS: *CREATININE,URINE 235.3 mg/dL (30-125)
[2017-09-05 15:44] VITALS: BP 121/75
--- NOTE | 2017-09-05 18:44 | NUR ---
no distress noted, tele SR 70's, denies of chest pain, appetite good, voiding qs, all needs attended and met, call light within reach
[2017-09-05 19:00] VITALS: BP 131/71
--- NOTE | 2017-09-05 19:50 | NUR ---
PT RECEIVED IN BED, AWAKE. A/OX3. ABLE TO MAKE NEEDS KNOWN. V/S STABLE. IN NO ACUTE DISTRESS. PT C/O PAIN 07/07. WILL ADMIN PAIN MEDICATION ORDERED. IVF INFUSING. SINUS RHYTHM ON THE TELE MONITOR. NO C/O OF SOB AT THIS TIME. SAFETY MEASURES IMPLEMENTED. CALL LIGHT WITHIN REACH.
[2017-09-05] MEDS: HYDROCODONE/APAP 5-325MG TABLET PO PRN (21:52)
[2017-09-06] VITALS: BP 119/72
[2017-09-06] MEDS: POTASSIUM CHLORIDE 20 MEQ in IV 1/2NS 1000 ML 1,000 ML IV PRN (00:30)
[2017-09-06 04:00] VITALS: BP 143/83
--- NOTE | 2017-09-06 06:05 | NUR ---
END OF SHIFT NOTES. PT SLEPT WELL THROUGHOUT SHIFT. IN STABLE CONDITION. SINUS NIDIA 50-65 ON THE TELE MONITOR. IVF INFUSING. ALL NEEDS ATTENDED. SAFETY MAINTAINED. CALL LIGHT WITHIN REACH.
[2017-09-06 06:39] LABS: BASOPHILS % (AUTO) 0.4 % (0.0-2.0); EOSINOPHILS # (AUTO) 0.4 K/uL (0.0-0.7); HEMATOCRIT 38.7 % (36.7-47.1); HEMOGLOBIN 13.4 g/dL (12.5-16.3); LYMPHOCYTES # (AUTO) 1.6 K/uL (20.0-40.0); LYMPHOCYTES % (AUTO) 18.8 % (20.5-51.5); MEAN CORPUSCULAR HEMOGLOBIN 31.3 uug (23.8-33.4); MEAN CORPUSCULAR HGB CONC 35 g/dL (32.5-36.3); MEAN CORPUSCULAR VOLUME 90.6 fL (73.0-96.2); MONOCYTES # (AUTO) 0.8 K/uL (2.0-10.0); MONOCYTES % (AUTO) 8.9 % (0.0-11.0); NEUTROPHILS # (AUTO) 5.8 K/uL (1.8-8.9); NEUTROPHILS % (AUTO) 66.9 % (38.5-71.5); PLATELET COUNT (AUTO) 189 K/uL (152-348); RED BLOOD CELL COUNT(AUTO) 4.27 MIL/uL (4.06-5.63); WHITE BLOOD COUNT (AUTO) 8.6 K/uL (3.6-10.2)
[2017-09-06 07:00] LABS: BILIRUBIN,TOTAL 0.7 mg/dL (0.2-1.0); CREATININE 1.1 mg/dL (0.6-1.3); MAGNESIUM 2.1 mg/dL (1.8-2.4); PHOSPHOROUS 2.9 mg/dL (2.5-4.9); POTASSIUM 4.2 mmol/L (3.5-5.1); TOTAL PROTEIN, SERUM 5.7 g/dL (6.4-8.2)
[2017-09-06] MEDS: ASPIRIN 81 MG TAB.CHEW PO SCH (08:55)
[2017-09-06] MEDS: HYDROCODONE/APAP 5-325MG TABLET PO PRN (08:58)
--- NOTE | 2017-09-06 08:58 | NUR ---
awake alert and oriented, states has generalized pain, medicated with [place] 1 tab as ordered prn, tele SR 60's, call light within reach, with good appetite and voiding qs
[2017-09-06 11:20] VITALS: BP 136/82
--- NOTE | 2017-09-06 12:30 | NUR ---
seen by Dr Tan pacheco/[facility]
[2017-09-06] MEDS ORDERED: ASPI81TA31 PO (12:39)
[2017-09-06] MEDS ORDERED: LORAZEPAM 0.5 MG TABLET PO PRN (12:45)
--- NOTE | 2017-09-06 14:00 | NUR ---
discharge instructions given- verbalized understanding, saline lock removed- no swelling/redness noted on site- states going home to his friend[place] house in [place]
--- NOTE | 2017-09-06 14:30 | NUR ---
escorted to lobby in stable condition with all his belongings, taking the bus and bus token provided
== END 2017-09-06 14:30 | disposition home or self-care (01) | DRG 816 ==
LOC: ER 04:29 → TELE 06:10
PROVIDERS: ADMIT Internal Medicine; ATTEND Internal Medicine
DX: T40.5X1A Poisoning by cocaine, accidental (unintentional), initial encounter (principal); N17.0 Acute kidney failure with tubular necrosis; I11.0 Hypertensive heart disease with heart failure; I50.22 Chronic systolic (congestive) heart failure; E78.5 Hyperlipidemia, unspecified; I42.9 Cardiomyopathy, unspecified; F17.210 Nicotine dependence, cigarettes, uncomplicated; F41.9 Anxiety disorder, unspecified; I48.0 Paroxysmal atrial fibrillation; K21.9 Gastro-esophageal reflux disease without esophagitis; Z91.19 Patient's noncompliance with other medical treatment and regimen; I48.92 Unspecified atrial flutter; Y92.009 Unspecified place in unspecified non-institutional (private) residence as the place of occurrence of the external cause; F14.188 Cocaine abuse with other cocaine-induced disorder
CPT/HCPCS: 36415; 70030-TC; 71010; 80307; 83735; 84100; 84300; 85025; 85730; 93005; A4663; J2060; J3480; J3490

== ENCOUNTER 2017-09-10 02:34 | Emergency (ER) | payer MEDICAID ==
[~2017-09-10] VITALS: Ht 177.8 cm; Wt 86.2 kg
[~2017-09-10 02:34] MED LIST changes: +ASPI81TA31 PO
[2017-09-10] MEDS ORDERED: ASPIRIN 81 MG TAB.CHEW PO ONE (02:45)
[2017-09-10] MEDS ORDERED: NITROGLYCERIN 0.4 MG/TAB BOTTLE SL ONE ×2 (02:45→03:10)
[2017-09-10] MEDS: NITROGLYCERIN OINT 1 GM PACKET TP ONE ×2 (02:55→02:59)
--- NOTE | 2017-09-10 02:59 | NUR ---
labs drawn/ekg done/meds admin/monitor shows nsr/po2=97% on roomair, pt stated throbbing rt sided cp pain, ntg#1sl admin,cp-05/07.
[2017-09-10 03:01] LABS: BASOPHILS # (AUTO) 0.1 K/uL (0.0-8.0); BASOPHILS % (AUTO) 0.6 % (0.0-2.0); EOSINOPHILS # (AUTO) 0.4 K/uL (0.0-0.7); EOSINOPHILS % (AUTO) 4.8 % (0.0-7.0); HEMATOCRIT 43.6 % (36.7-47.1); HEMOGLOBIN 14.9 g/dL (12.5-16.3); LYMPHOCYTES # (AUTO) 1.4 K/uL (20.0-40.0); LYMPHOCYTES % (AUTO) 16.2 % (20.5-51.5); MEAN CORPUSCULAR HEMOGLOBIN 31.2 uug (23.8-33.4); MEAN CORPUSCULAR HGB CONC 34 g/dL (32.5-36.3); MONOCYTES # (AUTO) 0.7 K/uL (2.0-10.0); MONOCYTES % (AUTO) 8.1 % (0.0-11.0); NEUTROPHILS % (AUTO) 70.3 % (38.5-71.5); PLATELET COUNT (AUTO) 222 K/uL (152-348); RED BLOOD CELL COUNT(AUTO) 4.79 MIL/uL (4.06-5.63); WHITE BLOOD COUNT (AUTO) 8.5 K/uL (3.6-10.2)
[2017-09-10 03:07] LABS: CREATININE 1.3 mg/dL (0.6-1.3); POTASSIUM 3.3 mmol/L (3.5-5.1)
[2017-09-10] MEDS ORDERED: NITROGLYCERIN OINT 1 GM PACKET TP ONE (03:10)
[2017-09-10] MEDS ORDERED: ASPIRIN 81 MG TAB.CHEW ONE (03:10)
[2017-09-10 03:20] LABS: BILIRUBIN,DIRECT 0.1 mg/dL (0.0-0.2); BILIRUBIN,TOTAL 0.4 mg/dL (0.2-1.0); TOTAL PROTEIN, SERUM 7.2 g/dL (6.4-8.2)
--- NOTE | 2017-09-10 03:40 | NUR ---
pt rec'd sl ntg x 3 total, no change in cp.
[2017-09-10] MEDS ORDERED: HYDROCODONE/APAP 10-325 MG TABLET PO ONE (03:45)
[2017-09-10] MEDS ORDERED: ONDANSETRON ODT 4 MG TAB.RAPDIS SL ONE (03:45)
[2017-09-10] MEDS ORDERED: POTASSIUM CHLORIDE 20 MEQ TAB.PRT.SR PO ONE (03:45)
[2017-09-10] MEDS ORDERED: ONDANSETRON ODT 4 MG TAB.RAPDIS ONE (04:08)
[2017-09-10] MEDS ORDERED: POTASSIUM CHLORIDE 20 MEQ TAB.PRT.SR ONE (04:08)
[2017-09-10] MEDS ORDERED: HYDROCODONE/APAP 10-325 MG TABLET ONE (04:08)
[2017-09-10 04:30] LABS: *BILIRUBIN,URIN NEGATIVE (NEGATIVE); *BLOOD, URINE NEGATIVE (NEGATIVE); *CLARITY,URINE CLEAR (CLEAR); *COLOR,URINE YELLOW (YELLOW); *KETONES,URINE NEGATIVE (NEGATIVE); *PROTEIN,URINE TRACE (NEGATIVE); *UROBILINOGEN,URINE 0.2 E.U./dl (NORMAL); LEUKOCYTE ESTERASE ,URINE NEGATIVE (NEGATIVE); NITRITE, URINE NEGATIVE (NEGATIVE); PH,URINE 5.5 (5.0-8.0); UGLUCOSE NEGATIVE (NEGATIVE)
[2017-09-10 04:33] LABS: RBC,URINE NONE SEEN /HPF (0-3); WBC,URINE 0-3 /HPF (0-3)
[2017-09-10 04:34] LABS: BACTERIA,URINE NONE SEEN /HPF (NONE SEEN); SQUAMOUS EPITHELIAL CELL,UR FEW /HPF (NONE SEEN)
[2017-09-10 04:41] LABS: *AMPHETAMINE, URINE NEGATIVE (NEGATIVE); *BARBITURATE, URINE NEGATIVE (NEGATIVE); *CANNABINOID, URINE POSITIVE (NEGATIVE); *COCCAINE, URINE POSITIVE (NEGATIVE); *OPIATE, URINE NEGATIVE (NEGATIVE); *PHENCYCLIDINE SCREEN,URINE NEGATIVE (NEGATIVE)
--- NOTE | 2017-09-10 06:33 | NUR ---
mse completed, iv d/c'd intact, pt d/c'd home, acii/ekg copy, and lab results given to pt. pt got dressed and ambulated with all belongings.
[2017-09-10 06:35] VITALS: BP 151/88
== END 2017-09-10 06:36 | disposition home or self-care (01) ==
LOC: ER 02:36
DX: F14.10 Cocaine abuse, uncomplicated (principal); F41.9 Anxiety disorder, unspecified; R07.9 Chest pain, unspecified; I42.9 Cardiomyopathy, unspecified; I48.91 Unspecified atrial fibrillation; I50.9 Heart failure, unspecified; N28.9 Disorder of kidney and ureter, unspecified; Z79.82 Long term (current) use of aspirin; Z91.14 Patient's other noncompliance with medication regimen; F17.200 Nicotine dependence, unspecified, uncomplicated
CPT/HCPCS: 36415; 70030-TC; 71010; 80307; 85025; 93005; A4663; Q0162

== ENCOUNTER 2017-11-11 08:24 | Inpatient (IN) | payer MEDICAID ==
[~2017-11-11] VITALS: Ht 177.8 cm; Wt 85.7 kg
[~2017-11-11 08:24] MED LIST changes: -ACET650S24 RC; -ATOR20TA PO; -DIGO250T16 PO; -Furosemide PO; -RIVA10TA PO
[2017-11-11] MEDS ORDERED: MORPHINE SULFATE 2 MG/1 ML DISP.SYRIN IV ONE (08:45)
[2017-11-11] MEDS ORDERED: NITROGLYCERIN 0.4 MG/TAB BOTTLE SL ONE ×2 (08:45→09:11)
[2017-11-11] MEDS ORDERED: NITROGLYCERIN OINT 1 GM PACKET TP ONE ×2 (08:45→08:59)
[2017-11-11] MEDS ORDERED: FUROSEMIDE 20 MG/2 ML VIAL IV ONE ×2 (08:45→09:34)
[2017-11-11] MEDS ORDERED: ASPIRIN 81 MG TAB.CHEW PO ONE (08:50)
[2017-11-11 09:01] LABS: BASOPHILS # (AUTO) 0.1 K/uL (0.0-8.0); EOSINOPHILS # (AUTO) 0.5 K/uL (0.0-0.7); EOSINOPHILS % (AUTO) 5.8 % (0.0-7.0); HEMATOCRIT 40.7 % (36.7-47.1); HEMOGLOBIN 13.8 g/dL (12.5-16.3); LYMPHOCYTES # (AUTO) 1.6 K/uL (20.0-40.0); LYMPHOCYTES % (AUTO) 19.2 % (20.5-51.5); MEAN CORPUSCULAR HEMOGLOBIN 30.8 uug (23.8-33.4); MEAN CORPUSCULAR HGB CONC 34 g/dL (32.5-36.3); MEAN CORPUSCULAR VOLUME 91.3 fL (73.0-96.2); MONOCYTES # (AUTO) 0.7 K/uL (2.0-10.0); MONOCYTES % (AUTO) 8.2 % (0.0-11.0); NEUTROPHILS # (AUTO) 5.3 K/uL (1.8-8.9); NEUTROPHILS % (AUTO) 65.8 % (38.5-71.5); PLATELET COUNT (AUTO) 255 K/uL (152-348); RED BLOOD CELL COUNT(AUTO) 4.46 MIL/uL (4.06-5.63); WHITE BLOOD COUNT (AUTO) 8.1 K/uL (3.6-10.2)
[2017-11-11 09:07] LABS: CREATININE 1.1 mg/dL (0.6-1.3); POTASSIUM 3.8 mmol/L (3.5-5.1)
[2017-11-11] MEDS ORDERED: ASPIRIN 81 MG TAB.CHEW ONE (09:10)
[2017-11-11] MEDS ORDERED: MORPHINE SULFATE 4 MG/1 ML DISP.SYRIN ONE (09:10)
[2017-11-11 09:20] LABS: BILIRUBIN,TOTAL 0.4 mg/dL (0.2-1.0); TOTAL PROTEIN, SERUM 6.9 g/dL (6.4-8.2)
[2017-11-11] MEDS ORDERED: ENOXAPARIN SODIUM 80 MG/0.8 ML DISP.SYRIN SQ ONE (09:46)
[2017-11-11] MEDS ORDERED: FUROSEMIDE 20 MG/2 ML VIAL ONE (09:53)
[2017-11-11 10:12] LABS: *BILIRUBIN,URIN NEGATIVE (NEGATIVE); *BLOOD, URINE NEGATIVE (NEGATIVE); *CLARITY,URINE CLEAR (CLEAR); *COLOR,URINE YELLOW (YELLOW); *KETONES,URINE NEGATIVE (NEGATIVE); *PROTEIN,URINE NEGATIVE (NEGATIVE); *UROBILINOGEN,URINE 0.2 E.U./dl (NORMAL); LEUKOCYTE ESTERASE ,URINE NEGATIVE (NEGATIVE); NITRITE, URINE NEGATIVE (NEGATIVE); PH,URINE 5.5 (5.0-8.0); UGLUCOSE NEGATIVE (NEGATIVE)
[2017-11-11] MEDS ORDERED: ONDANSETRON 4 MG/2 ML VIAL IV PRN (10:15)
[2017-11-11] MEDS ORDERED: Z GUARD REMEDY PASTE 57 GM TUBE TOP PRN (10:15)
[2017-11-11] MEDS ORDERED: HYDROCODONE/APAP 5-325MG TABLET PO PRN (10:15)
[2017-11-11] MEDS ORDERED: MORPHINE SULFATE 2 MG/1 ML DISP.SYRIN IV PRN (10:15)
[2017-11-11] MEDS ORDERED: METOPROLOL TARTRATE 50 MG TABLET PO SCH (10:15)
[2017-11-11] MEDS ORDERED: MAGNESIUM HYDROXIDE 30 ML LIQUID UDC PO PRN (10:15)
[2017-11-11] MEDS ORDERED: NITROGLYCERIN OINT 1 GM PACKET TP SCH (10:15)
[2017-11-11] MEDS ORDERED: ACETAMINOPHEN 325 MG TABLET PO PRN (10:15)
[2017-11-11 10:17] LABS: BACTERIA,URINE FEW /HPF (NONE SEEN); RBC,URINE NONE SEEN /HPF (0-3); SQUAMOUS EPITHELIAL CELL,UR FEW /HPF (NONE SEEN); WBC,URINE 0-3 /HPF (0-3)
--- NOTE | 2017-11-11 10:22 | NUR ---
PT TRANSFERED TO FLOOR IN STABLE CONDFITION. PT COMFORTABLE AND RESTING THE WHOLE ER STAY.
[2017-11-11 10:25] LABS: *AMPHETAMINE, URINE NEGATIVE (NEGATIVE); *BARBITURATE, URINE NEGATIVE (NEGATIVE); *CANNABINOID, URINE NEGATIVE (NEGATIVE); *COCCAINE, URINE POSITIVE (NEGATIVE); *OPIATE, URINE POSITIVE (NEGATIVE); *PHENCYCLIDINE SCREEN,URINE NEGATIVE (NEGATIVE)
[2017-11-11] MEDS ORDERED: METOPROLOL TARTRATE 25 MG TABLET PO SCH (10:38)
[2017-11-11 10:40] VITALS: BP 149/85
--- NOTE | 2017-11-11 10:40 | NUR ---
ADMIT PT.FROM ER TELE,NO S/S OF ACUTE DISTRESS,DENIES ANY PAIN @ TIME.
[2017-11-11] MEDS ORDERED: MORPHINE SULFATE 4 MG/1 ML DISP.SYRIN IV PRN (10:45)
--- NOTE | 2017-11-11 10:50 | NUR ---
PT.WAS SEEN BY TASHIA COLVIN MD. AND .
[2017-11-11] MEDS ORDERED: DILTIAZEM HCL CD 180 MG CAP.SR.24H PO SCH (11:00)
[2017-11-11] MEDS: ISOSORBIDE MONONITRATE 30 MG TAB.SR.24H PO SCH (11:26)
[2017-11-11] MEDS: AMLODIPINE 10 MG TABLET PO SCH (11:26)
[2017-11-11] MEDS: CLONIDINE HCL 0.1 MG TABLET PO SCH ×2 (11:27→22:00)
[2017-11-11 14:00] VITALS: BP 114/75
[2017-11-11 17:55] VITALS: BP 124/76
--- NOTE | 2017-11-11 18:30 | NUR ---
pt.ate dinner,good appetite,went back to sleep.
[2017-11-11 20:00] VITALS: BP 129/74
[2017-11-12 00:01] VITALS: BP 132/81
[2017-11-12 04:00] VITALS: BP 125/84
[2017-11-12 05:42] LABS: CREATININE 1.3 mg/dL (0.6-1.3); MAGNESIUM 2.1 mg/dL (1.8-2.4); PHOSPHOROUS 3.4 mg/dL (2.5-4.9); POTASSIUM 4.2 mmol/L (3.5-5.1)
[2017-11-12 05:46] LABS: BASOPHILS # (AUTO) 0.1 K/uL (0.0-8.0); EOSINOPHILS # (AUTO) 0.5 K/uL (0.0-0.7); EOSINOPHILS % (AUTO) 4.9 % (0.0-7.0); HEMATOCRIT 38.1 % (36.7-47.1); HEMOGLOBIN 12.9 g/dL (12.5-16.3); LYMPHOCYTES % (AUTO) 20.4 % (20.5-51.5); MEAN CORPUSCULAR HEMOGLOBIN 31.1 uug (23.8-33.4); MEAN CORPUSCULAR HGB CONC 34 g/dL (32.5-36.3); MEAN CORPUSCULAR VOLUME 91.9 fL (73.0-96.2); MONOCYTES # (AUTO) 0.8 K/uL (2.0-10.0); MONOCYTES % (AUTO) 8.7 % (0.0-11.0); NEUTROPHILS # (AUTO) 6.4 K/uL (1.8-8.9); PLATELET COUNT (AUTO) 249 K/uL (152-348); RED BLOOD CELL COUNT(AUTO) 4.15 MIL/uL (4.06-5.63); WHITE BLOOD COUNT (AUTO) 9.8 K/uL (3.6-10.2)
[2017-11-12] MEDS: CLONIDINE HCL 0.1 MG TABLET PO SCH (05:58)
--- NOTE | 2017-11-12 07:15 | NUR ---
received report from operations supervisor 2nd shift nurse, patient in bed, no evidence of distress noted at this time. bed in low position, side rails up x2.
[2017-11-12 07:45] VITALS: BP 128/79
[2017-11-12] MEDS: AMLODIPINE 10 MG TABLET PO SCH (08:54)
[2017-11-12] MEDS: ISOSORBIDE MONONITRATE 30 MG TAB.SR.24H PO SCH (08:54)
[2017-11-12] MEDS ORDERED: ENOXAPARIN SODIUM 40 MG/0.4 ML DISP.SYRIN SQ SCH (09:00)
[2017-11-12] MEDS ORDERED: ASPIRIN 81 MG TAB.CHEW PO SCH (09:00)
[2017-11-12] MEDS ORDERED: NITR0.4T48 SL (10:29)
[2017-11-12] MEDS ORDERED: AMLO10TA2 PO (10:29)
[2017-11-12 11:12] VITALS: BP 135/83
--- NOTE | 2017-11-12 14:15 | NUR ---
Patient was provided with discharge education, iv removed, prescription provided to patient. Patient was discharged.
== END 2017-11-12 14:15 | disposition home or self-care (01) | DRG 816 ==
LOC: ER 08:24 → CCU 10:20 → MED 11-12 06:55 → TELE 11-12 07:30 → MED 11-12 13:10
PROVIDERS: ADMIT Internal Medicine; ATTEND Internal Medicine
DX: T40.5X1A Poisoning by cocaine, accidental (unintentional), initial encounter (principal); I20.1 Angina pectoris with documented spasm; I11.0 Hypertensive heart disease with heart failure; I50.9 Heart failure, unspecified; I42.9 Cardiomyopathy, unspecified; F14.188 Cocaine abuse with other cocaine-induced disorder; M62.82 Rhabdomyolysis; Z91.19 Patient's noncompliance with other medical treatment and regimen; F17.210 Nicotine dependence, cigarettes, uncomplicated; F32.9 Major depressive disorder, single episode, unspecified; F41.9 Anxiety disorder, unspecified; I48.0 Paroxysmal atrial fibrillation; I48.92 Unspecified atrial flutter; Y92.009 Unspecified place in unspecified non-institutional (private) residence as the place of occurrence of the external cause
CPT/HCPCS: 36415; 70030-TC; 71045; 80307; 83735; 84100; 85025; 85610; 93005; A4663; J1650; J1940; J2270

== ENCOUNTER 2017-11-24 13:07 | Inpatient (IN) | payer MEDICAID ==
[~2017-11-24] VITALS: Ht 177.8 cm; Wt 84.8 kg
[~2017-11-24 13:07] MED LIST changes: +AMLO10TA2 PO; +NITR0.4T48 SL
[2017-11-24] MEDS ORDERED: METOPROLOL TARTRATE 50 MG TABLET PO ONE (13:30)
[2017-11-24] MEDS ORDERED: NITROGLYCERIN OINT 1 GM PACKET TP ONE ×2 (13:30→13:38)
[2017-11-24] MEDS ORDERED: ASPIRIN 81 MG TAB.CHEW PO ONE (13:30)
[2017-11-24] MEDS ORDERED: METOPROLOL TARTRATE 50 MG TABLET ONE (13:38)
[2017-11-24] MEDS ORDERED: ASPIRIN 81 MG TAB.CHEW ONE (13:38)
--- NOTE | 2017-11-24 13:44 | NUR ---
Rounding Machine Operator assumes care, pending assigned telemetry bed & nurse from 2nd floor petroleum inspector supervisor [email or web address]
[2017-11-24 13:46] LABS: CREATININE 1.2 mg/dL (0.6-1.3); POTASSIUM 4.3 mmol/L (3.5-5.1)
[2017-11-24 13:57] LABS: BASOPHILS % (AUTO) 0.5 % (0.0-2.0); EOSINOPHILS # (AUTO) 0.5 K/uL (0.0-0.7); EOSINOPHILS % (AUTO) 6.1 % (0.0-7.0); HEMATOCRIT 43.7 % (36.7-47.1); HEMOGLOBIN 14.6 g/dL (12.5-16.3); LYMPHOCYTES # (AUTO) 1.8 K/uL (20.0-40.0); LYMPHOCYTES % (AUTO) 21.7 % (20.5-51.5); MEAN CORPUSCULAR HEMOGLOBIN 30.8 uug (23.8-33.4); MEAN CORPUSCULAR HGB CONC 34 g/dL (32.5-36.3); MONOCYTES # (AUTO) 0.6 K/uL (2.0-10.0); MONOCYTES % (AUTO) 7.5 % (0.0-11.0); NEUTROPHILS # (AUTO) 5.2 K/uL (1.8-8.9); NEUTROPHILS % (AUTO) 64.2 % (38.5-71.5); PLATELET COUNT (AUTO) 240 K/uL (152-348); RED BLOOD CELL COUNT(AUTO) 4.75 MIL/uL (4.06-5.63); WHITE BLOOD COUNT (AUTO) 8.1 K/uL (3.6-10.2)
[2017-11-24 14:04] LABS: BILIRUBIN,DIRECT 0.1 mg/dL (0.0-0.2); BILIRUBIN,TOTAL 0.5 mg/dL (0.2-1.0); TOTAL PROTEIN, SERUM 7.4 g/dL (6.4-8.2)
[2017-11-24] MEDS ORDERED: XARELTO (14:20)
--- NOTE | 2017-11-24 14:20 | NUR ---
MEDICATION LIST REVIEWED WITH PATIENT - REPORTS NONCOMPLIANCE WITH BLOODTHINNER MEDICINE - DOES NOT KNOW DOSAGE.
[2017-11-24] MEDS ORDERED: NITROGLYCERIN 0.4 MG/TAB BOTTLE SL PRN (14:45)
[2017-11-24 14:50] VITALS: BP 137/80
[2017-11-24] MEDS ORDERED: ACETAMINOPHEN 325 MG TABLET PO PRN (15:00)
[2017-11-24] MEDS ORDERED: Z GUARD REMEDY PASTE 57 GM TUBE TOP PRN (15:00)
[2017-11-24] MEDS ORDERED: ZOLPIDEM 5 MG TABLET PO PRN ×3 (15:00→20:45)
[2017-11-24] MEDS ORDERED: HYDROCODONE/APAP 5-325MG TABLET PO PRN (15:00)
[2017-11-24] MEDS ORDERED: MAGNESIUM HYDROXIDE 30 ML LIQUID UDC PO PRN (15:00)
[2017-11-24] MEDS ORDERED: ONDANSETRON 4 MG/2 ML VIAL IV PRN (15:00)
--- NOTE | 2017-11-24 15:00 | NUR ---
Received from ER per mini this 57 yo male, with the chief complaint of chest tightness, with the diagnosis of chest pain, cardiomyopathy and non compliance with medical regimen. Transferred to bed comfortably. Routine admission care rendered. Placed on tele SR 65. Awake, alert, oriented x 4, limited movement of left hip. Served sandwich for lunch.
[2017-11-24] MEDS ORDERED: RIVAROXABAN 10 MG TABLET PO SCH (18:00)
--- NOTE | 2017-11-24 18:23 | NUR ---
Dr. Farah seen patient. Echo done at bedside
--- NOTE | 2017-11-24 19:35 | NUR ---
PT RECEIVED IN BED, AWAKE. A/OX4. ABLE TO MAKE NEEDS KNOWN. V/S STABLE. IN NO ACUTE DISTRESS. NO C/O PAIN AT THIS TIME. SINUS RHYTHM 66 ON THE TELE MONITOR. IV INTACT AND PATENT. ON RA, TOLERATING WELL. AFEBRILE. SAFETY MEASURES IMPLEMENTED. CALL LIGHT WITHIN REACH.
[2017-11-24 20:00] VITALS: BP 130/79
[2017-11-24] MEDS ORDERED: ENOXAPARIN SODIUM 40 MG/0.4 ML DISP.SYRIN SQ SCH (21:00)
[2017-11-25 04:00] VITALS: BP 144/86
--- NOTE | 2017-11-25 05:55 | NUR ---
END OF SHIFT NOTES. PT SLEPT WELL THROUGHOUT SHIFT. IN STABLE CONDITION. 57 SINUS NIDIA ON THE TELE MONITOR. INSOMNIA CORRECTED. IV INTACT AND PATENT. TOLERATED RA, WELL. AFEBRILE THROUGHOUT SHIFT. ALL NEEDS ATTENDED. SAFETY MAINTAINED. CALL LIGHT WITHIN REACH.
[2017-11-25] MEDS ORDERED: PANTOPRAZOLE SODIUM 40 MG TABLET.DR PO SCH (07:00)
[2017-11-25 07:03] LABS: BASOPHILS # (AUTO) 0.1 K/uL (0.0-8.0); EOSINOPHILS # (AUTO) 0.5 K/uL (0.0-0.7); EOSINOPHILS % (AUTO) 7.1 % (0.0-7.0); LYMPHOCYTES % (AUTO) 26.8 % (20.5-51.5); MEAN CORPUSCULAR HEMOGLOBIN 31.1 uug (23.8-33.4); MEAN CORPUSCULAR HGB CONC 34 g/dL (32.5-36.3); MEAN CORPUSCULAR VOLUME 91.1 fL (73.0-96.2); MONOCYTES # (AUTO) 0.6 K/uL (2.0-10.0); MONOCYTES % (AUTO) 8.5 % (0.0-11.0); NEUTROPHILS # (AUTO) 4.2 K/uL (1.8-8.9); NEUTROPHILS % (AUTO) 56.6 % (38.5-71.5); PLATELET COUNT (AUTO) 239 K/uL (152-348); WHITE BLOOD COUNT (AUTO) 7.4 K/uL (3.6-10.2)
--- NOTE | 2017-11-25 07:30 | NUR ---
RECEIVED SHIFT REPORT FROM RIVETER HAND NURSE. PT RESTING COMFORTABLY IN BED, STABLE CONDITION, NO S/S OF DISTRESS. A/OX4. CALL LIGHT WITHIN REACH. BRP.
[2017-11-25 07:39] LABS: CREATININE 1.2 mg/dL (0.6-1.3); MAGNESIUM 2.2 mg/dL (1.8-2.4); PHOSPHOROUS 3.8 mg/dL (2.5-4.9); POTASSIUM 4.1 mmol/L (3.5-5.1)
[2017-11-25] MEDS ORDERED: ASPIRIN 81 MG TAB.CHEW PO SCH (09:00)
[2017-11-25 11:38] VITALS: BP 147/82
[2017-11-25 12:27] VITALS: BP 132/76
--- NOTE | 2017-11-25 13:17 | NUR ---
PATIENT DISCHARGE HOME AT THIS TIME. STABLE CONDITION, NO S/S OF DISTRESS. DISCHARGE INSTRUCTIONS/EDUCATION PROVIDED TO PATIENT. DISCHARGE PACKET/DOCUMENTATION PROVIDED TO PATIENT. IV DISCONNECTED, ID BAND TAKEN OFF, BELONGINGS CHECKLIST CHECKED, AND SIGNED BY PATIENT. TELEMETRY BOX DISCONNECTED AND RETURNED TO COMMERCIAL LOAN COORDINATOR. PT LEFT FLOOR BY WHEELCHAIR IN SAFE CONDITION.
== END 2017-11-25 13:17 | disposition home or self-care (01) | DRG 198 ==
LOC: ER 13:07 → TELE 14:36
PROVIDERS: ADMIT Internal Medicine; ATTEND Internal Medicine
DX: I20.1 Angina pectoris with documented spasm (principal); I42.9 Cardiomyopathy, unspecified; F14.188 Cocaine abuse with other cocaine-induced disorder; F17.210 Nicotine dependence, cigarettes, uncomplicated; I48.0 Paroxysmal atrial fibrillation; I48.92 Unspecified atrial flutter; I10 Essential (primary) hypertension; Z91.19 Patient's noncompliance with other medical treatment and regimen; M16.0 Bilateral primary osteoarthritis of hip; I87.8 Other specified disorders of veins
CPT/HCPCS: 36415; 70030-TC; 71045; 72170; 73502; 83605; 83735; 84100; 85025; 85730; 87040; 93005; 93307; A4663; J1650